=== PATIENT | female | born 1985 | race Caucasian/White ===

== ENCOUNTER 2020-09-10 12:58 | Emergency (ER) | payer OTHER ==
[~2020-09-10 12:58] MED LIST: ADMELOG100 UNIT/1 SC; BACLOFEN 10MG T10 MG PO; COZAAR100 MG PO; GABAPENTIN600 MG PO; GLUCOPHAGE850 MG PO; HUMALOG100 UNIT/2 SC; HYDROCODONE-APA1 TAB PO; LIPITOR20 MG PO; MIRALAX17 G1 PO; MOBIC7.5 M1 PO; MOVANTIK12.5 MG PO; OMEPRAZOLE10 MG PO; PERCOCET 10/321 EACH PO; SYNTHROID112 MCG PO; SYNTHROID150 MCG PO; TESSALON PERLE100 MG PO; VIBRAMYCIN100 MG PO; ZOLOFT50 MG PO
[2020-09-10 14:38] LABS: BASOPHIL 0.4 % (0-2); EOSINOPHIL 0.7 % (0-5); HCT 37.3 % (37.0-47.0); HGB 12.5 g/dl (12.5-16.0); LYMPHOCYTE 27.4 % (15-48); MCH 30.3 pg (25.0-31.0); MCHC 33.5 g/dL (32.0-36.0); MCV 90.5 fL (78.0-100.0); MONOCYTE 7.5 % (0-12); MPV 11.3 fL (6.0-9.5); NEUTROPHIL 63.6 % (41-80); NRBC 0; PLT 173 K/uL (150-400); RBC 4.12 M/uL (4.20-5.40); WBC 7.4 K/uL (4.0-10.5)
[2020-09-10 14:58] LABS: BILIRUBIN 1+ mg/dL (NEGATIVE); BLOOD TRACE-INTACT Ery/uL (NEGATIVE); COLOR YELLOW (YELLOW); GLUCOSE (U) NORMAL (NORMAL); LEUKOCYTES 2+ Leu/uL (NEGATIVE); NITRITE POSITIVE (NEGATIVE); PROTEIN 2+ mg/dL (NEGATIVE); pH 6.5 (5.0-9.0)
[2020-09-10 15:03] LABS: ALBUMIN 3.1 g/dL (3.4-5.0); BILIRUBIN - TOTAL 0.5 mg/dL (0.2-1.0); BUN/CREAT RATIO (CALC) 19.7 RATIO; CREATININE 0.66 mg/dL (0.51-0.95); GLOBULIN (CALCULATION) 4.4 g/dL; TOTAL PROTEIN 7.5 g/dL (6.4-8.2)
[2020-09-10 15:05] LABS: CLARITY SLIGHTLY HAZY (CLEAR)
[2020-09-10 15:07] LABS: BACTERIA 4+; URINARY WBC TNTC
[2020-09-10] MEDS ORDERED: BACTRIM DS TAB1 EACH PO (16:50)
[2020-09-10] MEDS ORDERED: ZOFRAN4 M1 PO (16:50)
== END 2020-09-10 17:01 | disposition home or self-care (01) ==
LOC: FER 12:58
PROVIDERS: Physician Assistant
DX: N10 Acute pyelonephritis (principal); E10.9 Type 1 diabetes mellitus without complications; E03.9 Hypothyroidism, unspecified; Z88.0 Allergy status to penicillin; Z88.5 Allergy status to narcotic agent; Z79.899 Other long term (current) drug therapy
CPT/HCPCS: 36415; 80053; 81001; 83690; 84703; 85025; 87076; 87088; 87186; J0696; J1885; J2405; J7030; Q9967

== ENCOUNTER 2020-09-21 14:48 | Emergency (ER) | payer OTHER ==
[~2020-09-21 14:48] MED LIST changes: +BACTRIM DS TAB1 EACH PO; +ZOFRAN4 M1 PO
[2020-09-21 18:47] LABS: BASOPHIL 0.5 % (0-2); BILIRUBIN NEGATIVE (NEGATIVE); BLOOD NEGATIVE Ery/uL (NEGATIVE); CLARITY CLEAR (CLEAR); COLOR YELLOW (YELLOW); EOSINOPHIL 1.1 % (0-5); GLUCOSE (U) TRACE mg/dL (NORMAL); HCT 35.5 % (37.0-47.0); HGB 11.7 g/dl (12.5-16.0); LEUKOCYTES NEGATIVE Leu/uL (NEGATIVE); LYMPHOCYTE 33.7 % (15-48); MCH 30.2 pg (25.0-31.0); MCV 91.7 fL (78.0-100.0); MPV 11.1 fL (6.0-9.5); NEUTROPHIL 58.1 % (41-80); NITRITE NEGATIVE (NEGATIVE); NRBC 0; PLT 216 K/uL (150-400); PROTEIN NEGATIVE (NEGATIVE); RBC 3.87 M/uL (4.20-5.40); RDW 14.2 % (11.5-14.0); SPECIFIC GRAVITY >=1.030 (1.001-1.030); WBC 8.1 K/uL (4.0-10.5)
[2020-09-21 19:04] LABS: ALBUMIN 3.3 g/dL (3.4-5.0); BILIRUBIN - TOTAL 0.3 mg/dL (0.2-1.0); BUN/CREAT RATIO (CALC) 25.9 RATIO; CREATININE 0.54 mg/dL (0.51-0.95); GLOBULIN (CALCULATION) 3.5 g/dL; POTASSIUM 4.4 mmol/L (3.5-5.1); TOTAL PROTEIN 6.8 g/dL (6.4-8.2)
[2020-09-21] MEDS ORDERED: PROMETHEGA12.5 MG/SU PR (20:10)
[2020-09-21] MEDS ORDERED: BENTYL10 MG PO (20:10)
[2020-09-21] MEDS ORDERED: REGLAN10 MG PO (20:10)
== END 2020-09-21 20:31 | disposition home or self-care (01) ==
LOC: FER 14:48
PROVIDERS: Emergency Medicine
DX: R10.13 Epigastric pain (principal); R11.2 Nausea with vomiting, unspecified; E10.9 Type 1 diabetes mellitus without complications; E07.9 Disorder of thyroid, unspecified; Z90.49 Acquired absence of other specified parts of digestive tract; Z88.0 Allergy status to penicillin; Z88.5 Allergy status to narcotic agent; Z79.899 Other long term (current) drug therapy; Z98.84 Bariatric surgery status
CPT/HCPCS: 36415; 80053; 81003; 82150; 83690; 85025; J1885

== ENCOUNTER 2020-10-14 06:59 | Emergency (ER) | payer OTHER ==
[~2020-10-14 06:59] MED LIST changes: +BENTYL10 MG PO; +PROMETHEGA12.5 MG/SU PR; +REGLAN10 MG PO
[2020-10-14 07:32] LABS: BASOPHIL 0.7 % (0-2); EOSINOPHIL 1.1 % (0-5); HCT 38.2 % (37.0-47.0); HGB 12.4 g/dl (12.5-16.0); LYMPHOCYTE 34.6 % (15-48); MCH 30.2 pg (25.0-31.0); MCHC 32.5 g/dL (32.0-36.0); MCV 93.2 fL (78.0-100.0); MONOCYTE 6.9 % (0-12); MPV 10.7 fL (6.0-9.5); NEUTROPHIL 56.1 % (41-80); NRBC 0; PLT 231 K/uL (150-400); RDW 14.5 % (11.5-14.0)
[2020-10-14 07:35] LABS: BILIRUBIN NEGATIVE (NEGATIVE); BLOOD NEGATIVE Ery/uL (NEGATIVE); COLOR YELLOW (YELLOW); GLUCOSE (U) NORMAL (NORMAL); LEUKOCYTES TRACE Leu/uL (NEGATIVE); NITRITE POSITIVE (NEGATIVE); PROTEIN NEGATIVE (NEGATIVE)
[2020-10-14 07:36] LABS: CLARITY SLIGHTLY HAZY (CLEAR)
[2020-10-14 07:40] LABS: BACTERIA 4+; URINARY WBC 20-50
[2020-10-14 07:53] LABS: ALBUMIN 3.5 g/dL (3.4-5.0); BILIRUBIN - TOTAL 0.3 mg/dL (0.2-1.0); BUN/CREAT RATIO (CALC) 15.6 RATIO; CREATININE 0.64 mg/dL (0.51-0.95); POTASSIUM 4.5 mmol/L (3.5-5.1); TOTAL PROTEIN 7.5 g/dL (6.4-8.2)
[2020-10-14] MEDS ORDERED: PROZAC10 MG PO (11:31)
[2020-10-14] MEDS ORDERED: METRONIDAZOLE500 MG PO (14:29)
[2020-10-14] MEDS ORDERED: CIPRO500 MG PO (14:29)
[2020-10-14] MEDS ORDERED: ETODOLAC300 MG PO (14:29)
[2020-10-16 18:10] LABS: CHLAMYDIA TRACHOMATIS, NAA Negative (Negative); NEISSERIA GONORRHOEAE, NAA Negative (Negative)
== END 2020-10-14 15:00 | disposition home or self-care (01) ==
LOC: FER 06:59
PROVIDERS: Emergency Medicine Emergency Medical Services
DX: N30.00 Acute cystitis without hematuria (principal); N83.202 Unspecified ovarian cyst, left side; N76.0 Acute vaginitis; B96.89 Other specified bacterial agents as the cause of diseases classified elsewhere; E10.9 Type 1 diabetes mellitus without complications; Z90.49 Acquired absence of other specified parts of digestive tract; Z90.710 Acquired absence of both cervix and uterus; Z98.84 Bariatric surgery status; Z98.890 Other specified postprocedural states; Z88.0 Allergy status to penicillin; Z88.5 Allergy status to narcotic agent; Z79.891 Long term (current) use of opiate analgesic; Z79.899 Other long term (current) drug therapy
CPT/HCPCS: 36415; 76830; 80053; 81001; 83605; 83690; 84145; 85025; 87076; 87088; 87186; 87210; 87491; 87591; 96372; J0696; J1885; J2270; J2405; J3010; J7030; Q9967

== ENCOUNTER → 2020-10-21 | Day surgery (SDC) | payer OTHER ==
[~2020-10-21] VITALS: Ht 172.7 cm; Wt 80.7 kg
[~2020-10-21] MED LIST changes: +CIPRO500 MG PO; +ETODOLAC300 MG PO; +METRONIDAZOLE500 MG PO; +PROZAC10 MG PO
== END | disposition home or self-care (01) ==
LOC: FAS 07:45
DX: K29.50 Unspecified chronic gastritis without bleeding (principal); K59.09 Other constipation; R10.13 Epigastric pain; K60.3 Anal fistula; A04.8 Other specified bacterial intestinal infections; D64.9 Anemia, unspecified; G89.29 Other chronic pain; F41.9 Anxiety disorder, unspecified; F32.9 Major depressive disorder, single episode, unspecified; E78.5 Hyperlipidemia, unspecified; I10 Essential (primary) hypertension; E03.9 Hypothyroidism, unspecified; E66.01 Morbid (severe) obesity due to excess calories; Z98.84 Bariatric surgery status; E10.9 Type 1 diabetes mellitus without complications; Z88.0 Allergy status to penicillin; Z88.5 Allergy status to narcotic agent; Z79.899 Other long term (current) drug therapy
CPT/HCPCS: J1885; J2250; J2704; J7120